=== PATIENT | female | born 1950 | race Caucasian/White ===

== ENCOUNTER 2025-09-22 10:14 | Emergency (ER) | payer MEDICARE, OTHER ==
[~2025-09-22] VITALS: Ht 167.6 cm; Wt 81.6 kg
[2025-09-22 13:45] VITALS: BP 111/69; TEMP 98.6; O2SAT 96
== END 2025-09-22 13:45 | disposition home health service (06) ==
LOC: ER 10:16
DX: S40.011A Contusion of right shoulder, initial encounter (principal); S40.021A Contusion of right upper arm, initial encounter; M25.521 Pain in right elbow; M79.631 Pain in right forearm; I51.9 Heart disease, unspecified; E11.9 Type 2 diabetes mellitus without complications; W01.0XXA Fall on same level from slipping, tripping and stumbling without subsequent striking against object, initial encounter; Y93.89 Activity, other specified; Y92.89 Other specified places as the place of occurrence of the external cause; Y99.9 Unspecified external cause status
CPT/HCPCS: 73080-TC; 73090-TC